=== PATIENT | female | born 1970 | race Caucasian/White ===

== ENCOUNTER 2017-01-12 08:55 | Outpatient (CLI) | payer OTHER ==
[2017-01-12 18:39] LABS: Hemoglobin A1c 7.6 % (4.0-6.0)
== END 2017-01-12 08:56 | disposition home or self-care (01) ==
LOC: NAV LAB 08:55
PROVIDERS: ATTEND Family Medicine
DX: E11.9 Type 2 diabetes mellitus without complications (principal)
CPT/HCPCS: 36415; 83036